=== PATIENT | female | born 1995 | race African-American/Black ===

== ENCOUNTER 2019-03-06 08:45 | Emergency (ER) | payer MEDICAID, OTHER ==
[~2019-03-06] VITALS: Ht 162.6 cm; Wt 64.0 kg
[2019-03-06 10:14] LABS: EOSINOPHILS % 1.1 % (0.0-5.0); HEMATOCRIT. 39.6 % (36.0-48.0); HEMOGLOBIN. 13.3 g/dL (12.0-16.0); MEAN CORPUSCULAR HEMOGLOBIN 32.7 pg (28.0-32.0); MEAN CORPUSCULAR VOLUME 97.3 fL (81.0-99.0); MEAN PLATELET VOLUME 7.5 fl (7.4-10.4); MONOCYTES % 11.5 % (2.0-8.0); NEUTROPHILS % 50.4 % (40.0-76.0); PLATELET 273 x1000/uL (130-400); RED BLOOD CELL COUNT 4.07 mill/uL (4.2-5.4); RED CELL DISTRIBUTION WIDTH 13.5 % (11.6-14.6)
[2019-03-06 10:26] LABS: CHLORIDE 105 mEq/L (98-107)
[2019-03-06 10:39] LABS: B-HCG QUANTITATIVE < 1 mIU/mL (<3)
[2019-03-06 12:50] VITALS: BP 121/73
== END 2019-03-06 12:51 | disposition home or self-care (01) ==
LOC: ER 08:45
DX: N93.9 Abnormal uterine and vaginal bleeding, unspecified (principal)
CPT/HCPCS: 36415; 76830; 76856; 84702; 86850; 86900; 99284

== ENCOUNTER 2019-10-24 07:36 | Emergency (ER) | payer MEDICAID ==
[~2019-10-24] VITALS: Ht 160 cm; Wt 78.0 kg
[2019-10-24] MEDS ORDERED: ACETAMINOPHEN 500MG TABLET PO ONE (08:15)
[2019-10-24 08:45] LABS: BASOPHILS % 0.8 % (0.0-2.0); EOSINOPHILS % 1.4 % (0.0-5.0); HEMATOCRIT. 39.4 % (36.0-48.0); HEMOGLOBIN. 13.4 g/dL (12.0-16.0); MEAN CORPUSCULAR HEMOGLOBIN 31.8 pg (28.0-32.0); MEAN CORPUSCULAR VOLUME 93.5 fL (81.0-99.0); MEAN PLATELET VOLUME 7.8 fl (7.4-10.4); MONOCYTES % 12.6 % (2.0-8.0); NEUTROPHILS % 46.2 % (40.0-76.0); PLATELET 247 x1000/uL (130-400); RED BLOOD CELL COUNT 4.21 mill/uL (4.2-5.4); RED CELL DISTRIBUTION WIDTH 14.4 % (11.6-14.6)
[2019-10-24 08:53] LABS: CHLORIDE 107 mEq/L (98-107)
[2019-10-24 09:05] LABS: B-HCG QUANTITATIVE < 1 mIU/mL (<3)
[2019-10-24] MEDS ORDERED: HYDROCODONE/ACETAMINOPHEN 5/325MG TABLET PO ONE (10:00)
[2019-10-24 10:44] VITALS: BP 122/81
== END 2019-10-24 11:19 | disposition home or self-care (01) ==
LOC: ER 07:36
DX: N93.9 Abnormal uterine and vaginal bleeding, unspecified (principal); R10.30 Lower abdominal pain, unspecified
CPT/HCPCS: 36415; 76830; 76856; 80053; 81025; 84702; 85025; 86850; 86900; 99284

== ENCOUNTER 2019-11-14 12:04 | Emergency (ER) | payer MEDICAID ==
[~2019-11-14] VITALS: Ht 160 cm; Wt 69.0 kg
[2019-11-14 12:12] VITALS: BP 144/91
== END 2019-11-14 14:41 | disposition left against medical advice (07) ==
LOC: ER 12:04
DX: R07.89 Other chest pain (principal); Z53.21 Procedure and treatment not carried out due to patient leaving prior to being seen by health care provider

== ENCOUNTER 2022-08-14 17:01 | Emergency (ER) | payer OTHER, MEDICAID ==
[~2022-08-14] VITALS: Ht 162.6 cm; Wt 69.0 kg
[2022-08-14 17:27] VITALS: BP 139/93
[2022-08-14] MEDS ORDERED: ACETAMINOPHEN 325MG TABLET PO STA (17:44)
[2022-08-14] MEDS ORDERED: SODIUM CHLORIDE 0.9% 1,000 ML IV ONE (17:45)
[2022-08-14 18:32] LABS: HEMOGLOBIN. 12.7 g/dL (12.0-16.0); MEAN CORPUSCULAR HEMOGLOBIN 36.7 pg (28.0-32.0); MEAN CORPUSCULAR VOLUME 106.6 fL (81.0-99.0); MEAN PLATELET VOLUME 7.8 fl (7.4-10.4); PLATELET 188 x1000/uL (130-400); RED BLOOD CELL COUNT 3.47 mill/uL (4.2-5.4); RED CELL DISTRIBUTION WIDTH 15.4 % (11.6-14.6)
[2022-08-14 18:39] LABS: CHLORIDE 97 mEq/L (98-107)
[2022-08-14 18:44] LABS: HCG SCREEN NEGATIVE
[2022-08-14 20:47] LABS: PROTHROMBIN TIME 10.3 sec (9.6-11.0)
[2022-08-14 20:54] LABS: PLATELET ESTIMATE NORMAL
== END 2022-08-14 21:46 | disposition left against medical advice (07) ==
LOC: ER 17:01
DX: R10.9 Unspecified abdominal pain (principal); Z53.21 Procedure and treatment not carried out due to patient leaving prior to being seen by health care provider
CPT/HCPCS: 36415; 80053; 83605; 83690; 84703; 85025; 85610; 99281; J7030; 99283